=== PATIENT | female | born 1960 | race Caucasian/White ===

== ENCOUNTER 2016-08-16 10:13 | Inpatient (IN) ==
--- NOTE | 2016-08-16 10:23 | Emergency Department Note ---
Disposition Clinical Impression: Upper GI bleed, Epigastric pain, History of ulcer disease, History of gastric bypass Hematemesis Qualifiers: Nausea presence: with nausea Qualified Code(s): K92.0 - Hematemesis Disposition: Admitted As Inpatient Condition: Fair Time of Disposition: 12:33 GI Bleed HPI - General Chief complaint: ED GI Bleed Stated complaint: vomiting blood Time Seen by Provider: 08/16/16 10:22 Source: patient Mode of arrival: ambulatory Limitations: no limitations Nursing Notes Reviewed: Yes Vital Signs Reviewed: Yes - History of Present Illness HPI Narrative: Patient is a 56-year-old female with past medical history of gastric ulcers, previous gastric bypass 8-9 years ago with a revision a few years ago, hypertension, hyperlipidemia, seizures. She takes sucralfate daily for his ulcers. She cannot remember if she takes a daily antacid. She presents today due to vomiting blood and abdominal pain. Patient states that last night, she began having episodes of vomiting and mild epigastric pain. The vomit was dark brown and she thought that it was chocolate since she had been eating chocolate earlier that day. However, she had continued vomiting today, the vomit was bright red blood. She has increased abdominal pain, it is mainly in the epigastric region and is now generalized as well. Denies any fevers, chest pain , shortness of breath, diarrhea, numbness, tingling, weakness. She states that she does not follow with a GI doctor here because she used to live in [place]. - Related Data Home Medications Medication Instructions Recorded Confirmed Multivitamin [Multi-Day Vitamins] 1 tab PO DAILY 04/29/16 04/30/16 Thiamine Mononitrate [Vitamin B-1] 100 mg PO DAILY 04/30/16 04/30/16 Previous Rx's Medication Instructions Recorded Albuterol Sulfate [Ventolin Hfa] 2 puff IH Q4H PRN #1 hfa.aer.ad 05/03/16 Amitriptyline HCl 50 mg PO HS #60 tablet 05/03/16 Amlodipine [Norvasc] 5 mg PO DAILY #30 tablet 05/03/16 Atorvastatin [Lipitor] 40 mg PO DAILY #30 tablet 05/03/16 CloNIDine HCl [Kapvay] 0.1 mg PO BID #60 tab.er.12h 05/03/16 Ferrous Sulfate 325 mg PO DAILY #30 tablet 05/03/16 Fluticasone Propionate Nasal 100 mcg NS DAILY #1 bottle 05/03/16 [Flonase] Fluticasone/Salmeterol [Advair 1 puff IH BID #1 blst.w.dev 05/03/16 250-50 Diskus] Gabapentin [Neurontin] 400 mg PO TID PRN #90 capsule 05/03/16 Loratadine [Allergy Relief] 10 mg PO DAILY #30 tablet 05/03/16 Meloxicam [Mobic] 7.5 mg PO DAILY #30 tablet 05/03/16 Metoprolol XL (24 HR) Succ [Toprol 50 mg PO DAILY #30 tab.er.24h 05/03/16 Xl] Montelukast [Singulair] 10 mg PO DAILY #30 tablet 05/03/16 Nitroglycerin [Nitrostat] 0.4 mg SL AD PRN #20 tab.subl 05/03/16 Perampanel [Fycompa] 4 mg PO DAILY #30 tablet 05/03/16 Ranitidine HCl [Acid Server Cashier] 150 mg PO DAILY #30 tablet 05/03/16 Sucralfate [Carafate] 1 gm PO QIDAC #120 tablet 05/03/16 Mupirocin Calcium [Bactroban] 15 gm TP BID #1 cream..g. 07/16/16 Allergies Allergy/AdvReac Type Severity Reaction Status Date / Time acetaminophen [From Percocet] Allergy Anaphylaxis Verified 07/29/16 11:05 ciprofloxacin [From Cipro] Allergy Anaphylaxis Verified 07/29/16 11:05 hydrocodone [From Vicodin] Allergy Anaphylaxis Verified 07/29/16 11:05 ibuprofen Allergy Anaphylaxis Verified 07/29/16 11:05 meperidine [From Demerol] Allergy Anaphylaxis Verified 07/29/16 11:05 morphine Allergy Anaphylaxis Verified 07/29/16 11:05 Oxycodone [From Percocet] Allergy Anaphylaxis Verified 07/29/16 11:05 Penicillins [PCN] Allergy Anaphylaxis Verified 07/29/16 11:05 tramadol Allergy Anaphylaxis Verified 07/29/16 11:05 Constitutional: Denies: fever ENT ED: Denies: ear pain, throat pain Cardiovascular: Denies: chest pain, palpitations, dyspnea on exertion Respiratory: Denies: cough, dyspnea, wheezes Gastrointestinal: Reports: abdominal pain, nausea, vomiting, hematemesis. Denies: diarrhea Genitourinary: Denies: urgency, dysuria, frequency Musculoskeletal: Denies: back pain Neurological: Denies: headache, weakness, numbness, paresthesias Past Medical History - Past Medical History Attestation: Yes The following information was validated with the patient. Source: patient Medical history: Reports: hyperlipidemia, hypertension, seizures, other Surgical history: Reports: appendectomy, cholecystectomy, hysterectomy, other ( Back surgery, bariatric surgery) Psychiatric history: Reports: anxiety, depression, PTSD CARBONATING STONE CLEANER history: Reports: no CARBONATING STONE CLEANER history - Social History Smoking Status: Never smoker Smokeless Tobacco Status: No Alcohol use: Reports: none Drug use: Reports: none Physical Exam - General Limitations: no limitations General appearance: alert - Head Head exam: atraumatic, normocephalic, normal inspection - Eye Eye exam: Present: normal appearance, PERRL, EOMI - ENT ENT exam: normal exam, normal oropharynx, mucous membranes moist - Neck Neck exam: Present: normal inspection, full ROM, trachea midline - Chest Chest inspection: Present: normal inspection, symmetric chest wall rise - Respiratory Respiratory exam: Present: normal lung sounds bilaterally. Absent: respiratory distress - Cardiovascular Cardiovascular exam: Present: normal rhythm, tachycardia, normal heart sounds - Abdominal Exam Abdominal exam: Present: soft, tenderness (Moderate generalized tenderness with worst pain in epigastric region), guarding (Voluntary guarding with palpation of the epigastric region). Absent: distention, rebound, rigidity - Extremities Exam Extremities exam: Present: normal inspection, full ROM. Absent: pedal edema - Neurological Exam Neurological exam: Present: alert, oriented X3 - Psychiatric Psychiatric exam: Present: normal affect, normal mood - Skin Skin exam: Present: warm, dry, intact, normal color Course Course Narrative: Patient was tachycardic in the 110s on presentation, blood pressure stable. Patient was visibly uncomfortable, holding her abdomen, did have bloody gastric contents in emesis bag. She had moderate generalized abdominal tenderness, worse in the epigastric region with voluntary guarding. The rest of physical exam was benign. No pale conjunctivae on exam. Current concern for perforated ulcer, upper GI bleed. Hemoglobin and hematocrit ordered, BMP, type and screen , fluids, Zofran and fentanyl for pain and nausea control. Also ordered CT the abdomen and pelvis with oral contrast for further assessment. 12:23 hemoglobin 11.1, patient's previous hemoglobin of 11.3. Blood pressure remained stable. INR is 1.0. Potassium mildly low at 3.3. CT scan showed incidental finding of dilated bile duct at 1.3 cm, otherwise no acute process. BP still stable, IV fluids running. I talked with Dr. Scott , endoscopy, who agreed to perform an upper GI endoscopy if the patient was admitted to the hospitalist service. Hospitalist has been paged. Patient was given additional Zofran and Fentanly for pain and nausea control. Dr. Quinn accepts for admission. Vital Signs Temperature 98.1 F 08/16/16 10:18 Pulse Rate 110 08/16/16 10:18 Respiratory Rate 16 08/16/16 10:18 Blood Pressure 120/86 08/16/16 10:18 O2 Sat by Pulse Oximetry 98 08/16/16 10:18 Temperature 97.9 F 08/16/16 13:57 Pulse Rate 78 08/16/16 13:57 Respiratory Rate 15 08/16/16 13:57 Blood Pressure 118/71 08/16/16 13:57 O2 Sat by Pulse Oximetry 98 08/16/16 13:57 Oxygen Delivery Oxygen Delivery Room Air GI Bleed - MDM Narrative Medical decision making narrative: hemoglobin 11.1, patient's previous hemoglobin of 11.3. Blood pressure remained stable. INR is 1.0. Potassium mildly low at 3.3. CT scan showed incidental finding of dilated bile duct at 1.3 cm, otherwise no acute process. BP still stable, IV fluids running. I talked with Dr. Scott , endoscopy, who agreed to perform an upper GI endoscopy if the patient was admitted to the hospitalist service. Hospitalist has been paged. Patient was given additional Zofran and Fentanly for pain and nausea control. Dr. Quinn accepts for admission. - Medical Records Medical records reviewed: Yes I reviewed the patient's medical records. - Lab Data Lab results reviewed: Yes I reviewed the patient's lab results. Result diagrams: 08/16/16 10:50 08/16/16 10:50 Lab Results 08/16/16 08/16/16 08/16/16 Range/Units 10:50 10:50 10:50 Hgb (11.5-15.4) g/dL Hct (35.3-44.9) % PT 11.3 (9.4-12.1) Seconds INR 1.0 Sodium 143 (136-145) mEq/L Potassium 3.3 L (3.5-4.5) mEq/L Chloride 108 (98-109) mEq/L Carbon Dioxide 24 (19-29) mEq/L BUN 14 (7-20) mg/dL Creatinine 0.73 (0.57-1.11) mg/dL Est GFR ( Amer) > 60 (> 60) Est GFR (Non-Af Amer) > 60 (> 60) BUN/Creatinine Ratio 19 (6-26) Glucose 103 H (70-99) mg/dL Calculated Osmolality 297 (280-300) Calcium 9.3 (8.6-10.8) mg/dL Blood Type A POSITIVE Antibody Screen NEGATIVE 08/16/16 Range/Units 10:50 Hgb 11.1 L (11.5-15.4) g/dL Hct 33.9 L (35.3-44.9) % PT (9.4-12.1) Seconds INR Sodium (136-145) mEq/L Potassium (3.5-4.5) mEq/L Chloride (98-109) mEq/L Carbon Dioxide (19-29) mEq/L BUN (7-20) mg/dL Creatinine (0.57-1.11) mg/dL Est GFR ( Amer) (> 60) Est GFR (Non-Af Amer) (> 60) BUN/Creatinine Ratio (6-26) Glucose (70-99) mg/dL Calculated Osmolality (280-300) Calcium (8.6-10.8) mg/dL Blood Type Antibody Screen - Radiology Data Radiology results reviewed: Yes I reviewed the patient's radiology results. Abdomen/Pelvis CT 08/16/16 10:34 IMPRESSION: 1. Dilated common bile duct measuring 1.3 cm. This can be seen in a postcholecystectomy state. However, I would recommend correlation with liver function studies to exclude an obstructing process. 2. Otherwise, no acute intra-abdominal or pelvic abnormality. 3. No urinary tract calcifications seen. D/ / Buddy Mayes MD / Buddy Mayes MD Interpreting Provider: Buddy Mayes MD - EKG Data EKG attestation: Yes I reviewed and interpreted this EKG. EKG results narrative: 08/16/2016. Normal sinus rhythm. Normal axis. Rate 95. QTc 426. QRS 100. No acute ST elevation or depression. No acute changes from previous EKG on S.[email or web address].Robel. - SIsmael Situation: Demographics, MOA Background: Presenting Complaint, Relevant PMH, Meds, & Allergies Assessment: Vital Signs, Course and respsone to treatment, Exam Concerns, Patient/Family Expectation, Pertinant Lab Results, Outstanding Labs Recommendation: Barrier(s) to disposition, Recommendation based on pending studies, treatments, or consults SIsmael Report Given to: Dr. Kai Cunningham Repor Time: 12:33 Attestation Statement - Attestation Attestation: I examined this patient and my medical decision-making was reviewed with the Resident Physician. I agree with the documented findings, disposition and treatment plan as described except to the extent set forth below. Significant abdominal tenderness and voluntary guarding, but no rigidity. NAD on CT, has hematesis, stable VS and stable Hgb. Admit for eval of UGIB and abominal pain.
[2016-08-16] MEDS ORDERED: Ondansetron 4 MG/2 ML VIAL IVP ONE ×2 (10:27→12:13)
[2016-08-16] MEDS ORDERED: *HR* FentaNYL (PF) 100 MCG/2 ML VIAL IVP ONE ×2 (10:35→12:12)
[2016-08-16] MEDS ORDERED: 0.9 % Sodium Chloride 1,000 ML IVC ONE (10:44)
[2016-08-16 10:57] LABS: Hematocrit 33.9 % (35.3-44.9); Hemoglobin 11.1 g/dL (11.5-15.4)
[2016-08-16 11:08] LABS: BUN/Creatinine Ratio 19 (6-26); Blood Urea Nitrogen 14 mg/dL (7-20); Calcium 9.3 mg/dL (8.6-10.8); Carbon Dioxide 24 mEq/L (19-29); Chloride 108 mEq/L (98-109); Glucose 103 mg/dL (70-99); Osmolality,Calculated 297 (280-300); Potassium 3.3 mEq/L (3.5-4.5); Sodium 143 mEq/L (136-145); eGFR For African Americans > 60 (> 60); eGFR For Non-African Americans > 60 (> 60)
[2016-08-16 11:12] LABS: Prothrombin Time 11.3 Seconds (9.4-12.1)
[2016-08-16] MEDS ORDERED: Naloxone 0.4 MG/ML INJ IVP PRN (13:36)
[2016-08-16] MEDS ORDERED: Ondansetron 4 MG/2 ML VIAL IVP PRN (13:41)
[2016-08-16] MEDS ORDERED: Pantoprazole 80 MG in 0.9 % Sodium Chloride 50 ML IVPB ONE (13:55)
--- NOTE | 2016-08-16 14:16 | Internal Med History&Physical ---
Date of Encounter: 08/16/16 Time of Encounter: 13:30 Assessment and Plan (1) Upper GI bleed Current visit: Yes Status: Acute 1 patient has a history of gastric ulcers. She presented with hematemesis and epigastric pain. Hemoglobin is stable at 11.1 Patient states that she has not used any ibuprofen or NSAIDs We will hold Mobic for now , we will monitor H&H every 6 hours and transfuse as needed 2 ER physician spoke with Dr. Coker who will perform endoscopy. Make patient nothing by mouth 3 we will initiate Protonix drip (2) DVT prophylaxis Current visit: Yes Status: Acute 1 due to GI bleed will place patient on SCDs (3) Essential hypertension Current visit: No Status: Chronic 1 presently controlled we will continue with home antihypertensives-goal is to maintain systolic less than 140 (4) Seizure disorder Current visit: No Status: Chronic 1 patient has history of seizure activity. Last seizure was in June. She has appointment to see Dr. Samson on the of this month. Continue with antiepileptics-placed on seizure precautions have patient follow-up as outpatient with neurology and consult neurology as needed (5) Hypokalemia Current visit: No Status: Acute Patient's potassium was 3.3. We will give oral potassium 20 mEq recheck in the a.m. Internal Medicine - H&P: HPI Chief complaint: Vomiting blood Admitted From: Emergency Dept Plans for Post Hospital Care: Home History of present illness: Ms. Palacios is a 56 year old female with past medical history of gastric ulcers previous gastric bypass 8-9 years ago with revision a few years ago hypertension hyperlipidemia seizures brain aneurysm. According to the patient she woke up in the middle the night with mild epigastric pain and vomited since it was dark brown she attributed to the fact that she had eaten chocolate earlier in the day. However as the night progress her pain increased she described the pain as sharp and burning more intense prior to vomiting and eases after she vomits. This a.m. the patient continued to have increased abdominal pain in her epigastric area and had 2 episodes of emesis bright red blood. She denied any fevers chills chest pain shortness of breath diarrhea numbness or weakness. She also denies any melena or hematochezia. She presented to the ER for evaluation. According to ER notes upon presentation patient was tachycardic with heart rate of 100 her blood pressure was stable she appeared to be visibly uncomfortable and had abdominal tenderness and epigastric pain she was medicated for her pain. Check of her H&H did reveal hemoglobin 11.1 which was unchanged from previous hemoglobin 11.3 in July of this year. did reveal a hypokalemia with potassium of 3.3. CT of abdomen revealed no acute intra-abdominal or pelvic abnormality however did show an incidental dilated common bile duct measuring 1.3 cm. The patient was given IV fluids for tachycardia did improve. ER physician did speak with Dr. Coker who recommended patient be admitted per hospitalist services and that he would see the patient for endoscopy. Patient has been admitted for further workup and evaluation. At present time patient does not appear to be in any discomfort and only has pain to abdomen upon palpation of epigastric area with guarding. No emesis at this time. She appears to be hemodynamically stable. The patient states that she is on Carafate daily and that she has not seen a GI doctor she has recently moved here from [place]. She does have a PCP however has not established GI. She states prior to this incident she has been at her normal state of health. I reviewed this case with Dr Quinn who agrees with plan Past Med Surg Social Fam HX - Past Medical History Medical history: hyperlipidemia, hypertension, seizures, other Psychiatric history: anxiety, depression, PTSD - Past Surgical History Surgical History: appendectomy, cholecystectomy, hysterectomy, other - Social History Smoking Status: Never smoker Smokeless Tobacco Status: No Alcohol use: none Drug use: none - Family History Mother Age: 58 Living Status: Cause of : Emphasema/Stroke Hx Family Cardiac Disorders: Yes Hx Family Respiratory Disorders: No Hx Family Cancer: No Hx Family GI Disorders: No Hx Family Endocrine Disorder: No Hx Family Neuromuscular Disorders: No Hx Family Neurologic Disorders: Yes (mom and dad had stroke) Hx Family HEENT Disorders: No Hx Family Autoimmune Disorders: No Internal Medicine - H&P: Meds Multivitamin [Multi-Day Vitamins] 1 tab PO DAILY 04/29/16 [History] Albuterol Sulfate [Ventolin Hfa] 2 puff IH Q4H PRN #1 hfa.aer.ad 05/03/16 [Rx] Amlodipine [Norvasc] 5 mg PO DAILY #30 tablet 05/03/16 [Rx] Atorvastatin [Lipitor] 40 mg PO DAILY #30 tablet 05/03/16 [Rx] CloNIDine HCl [Kapvay] 0.1 mg PO BID #60 tab.er.12h 05/03/16 [Rx] Ferrous Sulfate 325 mg PO DAILY #30 tablet 05/03/16 [Rx] Fluticasone Propionate Nasal [Flonase] 100 mcg NS DAILY #1 bottle 05/03/16 [Rx] Fluticasone/Salmeterol [Advair 250-50 Diskus] 1 puff IH BID #1 blst.w.dev [Rx] Gabapentin [Neurontin] 400 mg PO TID PRN #90 capsule 05/03/16 [Rx] Loratadine [Allergy Relief] 10 mg PO DAILY #30 tablet 05/03/16 [Rx] Meloxicam [Mobic] 7.5 mg PO DAILY #30 tablet 05/03/16 [Rx] Metoprolol XL (24 HR) Succ [Toprol Xl] 50 mg PO DAILY #30 tab.er.24h 05/03/16 [ Rx] Montelukast [Singulair] 10 mg PO DAILY #30 tablet 05/03/16 [Rx] Nitroglycerin [Nitrostat] 0.4 mg SL AD PRN #20 tab.subl 05/03/16 [Rx] Perampanel [Fycompa] 4 mg PO DAILY #30 tablet 05/03/16 [Rx] Sucralfate [Carafate] 1 gm PO QIDAC #120 tablet 05/03/16 [Rx] Amitriptyline HCl 200 mg PO HS 08/16/16 [History] Cyanocobalamin (Vitamin B-12) [Vitamin B12] 2,500 mcg PO DAILY 08/16/16 [History ] Vitamin B Complex [B Complex] 1 tab PO DAILY 08/16/16 [History] Allergies acetaminophen [From Percocet] Allergy (Verified 07/29/16 11:05) Anaphylaxis ciprofloxacin [From Cipro] Allergy (Verified 07/29/16 11:05) Anaphylaxis hydrocodone [From Vicodin] Allergy (Verified 07/29/16 11:05) Anaphylaxis ibuprofen Allergy (Verified 07/29/16 11:05) Anaphylaxis meperidine [From Demerol] Allergy (Verified 07/29/16 11:05) Anaphylaxis morphine Allergy (Verified 07/29/16 11:05) Anaphylaxis Oxycodone [From Percocet] Allergy (Verified 07/29/16 11:05) Anaphylaxis Penicillins [PCN] Allergy (Verified 07/29/16 11:05) Anaphylaxis tramadol Allergy (Verified 07/29/16 11:05) Anaphylaxis All Systems PM: A 10-system review of systems was performed and is negative for pertinent findings except as documented above in the HPI. - Constitutional Constitutional: falls, weakness - Cardiovascular Cardiovascular ROS IM: no chest pain, no diaphoresis, no dyspnea, no lightheadedness, no palpitations, no syncope - Respiratory Respiratory: no cough, no dyspnea, no wheezing, no excessive phlegm production - Gastrointestinal Gastrointestinal: abdominal pain, hematemesis - Genitourinary Genitourinary: no change in urinary stream, no dysuria, no flank pain, no hematuria - Musculoskeletal Musculoskeletal ROS IM: joint swelling, limited range of motion Additional comments: Limited range of motion and swelling to knees bilaterally - Neurological Neurological ROS: frequent falls Additional comments: Last seizures in June 2016 - Constitutional Vitals: Temp Pulse Resp BP Pulse Ox 97.9 F 78 15 118/71 98 08/16/16 13:57 08/16/16 13:57 08/16/16 13:57 08/16/16 13:57 08/16/16 13:57 General appearance: Present: A&O X 3, answers questions appropriately - Head Head exam: Present: atraumatic, normocephalic - Eye Eye exam: Present: PERRL, conjuntiva pink, sclera anicteric Pupils: Present: PERRL - Respiratory Respiratory exam: Present: CTAB. Absent: accessory muscle use, rales, rhonchi, wheezes - Cardiovascular Cardiovascular exam: Present: RRR, +S1, +S2. Absent: diastolic murmur, gallop, rubs, systolic murmur - GI/Abdominal GI/Abdominal exam: Present: guarding, normal bowel sounds, soft, tenderness, no peritoneal signs. Absent: distended Additional comments: Tenderness to epigastric area with guarding - Extremities Exam Extremities exam: Present: warm, radial pulses palpable and symetrical. Absent : calf tenderness, cyanotic, pedal edema - Neurological Exam Neurological exam: Present: CN II-XII intact, oriented X3, no focal deficits. Absent: pronater drift, facial droop, speech deficit - Skin Skin exam: Present: dry, intact Internal Med - H&P Results - Labs CBC & Chem 7: 08/16/16 17:19 08/16/16 10:50 - EKG Data EKG shows normal: sinus rhythm - Diagnostic Studies CT scan - abdomen Additional comments: Pertinent radiology read dilated common bile duct measuring 1.3 cm. This can be seen in a post cholecystectomy state. However at recommend correlation with liver function studies to exclude an obstructing process. Otherwise no acute intra-abdominal or pelvic abnormality. No urinary tract calcifications seen.
[2016-08-16 14:22] LABS: Alanine Aminotransferase 15 Units/L (0-55); Albumin 3.7 g/dL (3.5-5.0); Albumin/Globulin Ratio 1.2 (1.1-2.2); Alkaline Phosphatase 83 Units/L (38-126); Aspartate Amino Transferase 18 Units/L (5-34); Bilirubin,Direct 0.2 mg/dL (0.0-0.5); Bilirubin,Indirect 0.2 mg/dL (0.0-1.2); Bilirubin,Total 0.4 mg/dL (0.2-1.2); Globulin 3.1 g/dL (2.4-3.5); Total Protein 6.8 g/dL (6.0-8.3)
[2016-08-16] MEDS: 0.9 % Sodium Chloride 1,000 ML IVC SCH (14:51)
[2016-08-16] MEDS: Pantoprazole 40 MG in 0.9 % Sodium Chloride Mini Bag 100 ML IVC SCH ×2 (15:08→18:53)
[2016-08-16 17:25] LABS: Hematocrit 30.9 % (35.3-44.9)
--- NOTE | 2016-08-16 17:36 | General Surgery Consult Note ---
Date of Encounter: 08/16/16 Time of Encounter: 17:30 Assessment and Plan (1) Hematemesis Current Visit: Yes Status: Acute NPO PPI threrapy Carafate QID Monitor Hgb/Hct Discussed the risks, benefits, alternatives and expected outcomes with the patient and we will plan for an EGD 08/17/[address] Scott Qualifiers: Nausea presence: with nausea Qualified Code(s): K92.0 - Hematemesis; R11.0 - Nausea (2) Epigastric pain Current Visit: Yes Status: Acute NPO PPI threrapy Carafate QID Monitor Hgb/Hct Discussed the risks, benefits, alternatives and expected outcomes with the patient and we will plan for an EGD 08/17/[address] Scott (3) History of gastric bypass Current Visit: Yes Status: Acute (4) History of ulcer disease Current Visit: Yes Status: Acute History of Present Illness Consult date: 08/16/16 Requesting physician: Manuel Sanchez History of present illness: 56 year old female presented to the ED with complaints of vomiting up blood and epigastric abdominal pain for the past 24 hours. She states that she initially vomited up old gastric content but that it changed to blood this morning. She reports multiple episodes. Her abdominal pain is constant and denies any radiating factors. Denies any melena. She has not had a bowel movement in 3 days. She typically has a bowel movement every 3 days. Denies any shortness of breath of chest pains. Denies any syncopal episodes. Denies any unexplained weight loss. We have been asked to see and evaluate her for endoscopic evaluation. Her last EGD was complete in January 2016. Past Med Surg Social Fam HX - Past Medical History Source: old records reviewed Medical history: hyperlipidemia, hypertension, seizures, other Psychiatric history: anxiety, depression, PTSD - Past Surgical History Surgical History: appendectomy, cholecystectomy, hysterectomy, other (EGD X 8 ( last 01/2016)), bariatric surgery (9 years ago per patient) - Social History Smoking Status: Never smoker Smokeless Tobacco Status: No Alcohol use: none Drug use: none - Family History Mother Age: 58 Living Status: Cause of : Emphasema/Stroke Hx Family Cardiac Disorders: Yes Hx Family Respiratory Disorders: No Hx Family Cancer: No Hx Family GI Disorders: No Hx Family Endocrine Disorder: No Hx Family Neuromuscular Disorders: No Hx Family Neurologic Disorders: Yes (mom and dad had stroke) Hx Family HEENT Disorders: No Hx Family Autoimmune Disorders: No Medications and Allergies Multivitamin [Multi-Day Vitamins] 1 tab PO DAILY 04/29/16 [History] Albuterol Sulfate [Ventolin Hfa] 2 puff IH Q4H PRN #1 hfa.aer.ad 05/03/16 [Rx] Amlodipine [Norvasc] 5 mg PO DAILY #30 tablet 05/03/16 [Rx] Atorvastatin [Lipitor] 40 mg PO DAILY #30 tablet 05/03/16 [Rx] CloNIDine HCl [Kapvay] 0.1 mg PO BID #60 tab.er.12h 05/03/16 [Rx] Ferrous Sulfate 325 mg PO DAILY #30 tablet 05/03/16 [Rx] Fluticasone Propionate Nasal [Flonase] 100 mcg NS DAILY #1 bottle 05/03/16 [Rx] Fluticasone/Salmeterol [Advair 250-50 Diskus] 1 puff IH BID #1 blst.w.dev [Rx] Gabapentin [Neurontin] 400 mg PO TID PRN #90 capsule 05/03/16 [Rx] Loratadine [Allergy Relief] 10 mg PO DAILY #30 tablet 05/03/16 [Rx] Meloxicam [Mobic] 7.5 mg PO DAILY #30 tablet 05/03/16 [Rx] Metoprolol XL (24 HR) Succ [Toprol Xl] 50 mg PO DAILY #30 tab.er.24h 05/03/16 [ Rx] Montelukast [Singulair] 10 mg PO DAILY #30 tablet 05/03/16 [Rx] Nitroglycerin [Nitrostat] 0.4 mg SL AD PRN #20 tab.subl 05/03/16 [Rx] Perampanel [Fycompa] 4 mg PO DAILY #30 tablet 05/03/16 [Rx] Sucralfate [Carafate] 1 gm PO QIDAC #120 tablet 05/03/16 [Rx] Amitriptyline HCl 200 mg PO HS 08/16/16 [History] Cyanocobalamin (Vitamin B-12) [Vitamin B12] 2,500 mcg PO DAILY 08/16/16 [History ] Vitamin B Complex [B Complex] 1 tab PO DAILY 08/16/16 [History] Allergies acetaminophen [From Percocet] Allergy (Verified 07/29/16 11:05) Anaphylaxis ciprofloxacin [From Cipro] Allergy (Verified 07/29/16 11:05) Anaphylaxis hydrocodone [From Vicodin] Allergy (Verified 07/29/16 11:05) Anaphylaxis ibuprofen Allergy (Verified 07/29/16 11:05) Anaphylaxis meperidine [From Demerol] Allergy (Verified 07/29/16 11:05) Anaphylaxis morphine Allergy (Verified 07/29/16 11:05) Anaphylaxis Oxycodone [From Percocet] Allergy (Verified 07/29/16 11:05) Anaphylaxis Penicillins [PCN] Allergy (Verified 07/29/16 11:05) Anaphylaxis tramadol Allergy (Verified 07/29/16 11:05) Anaphylaxis Review of Systems All systems PM: reviewed and no additional remarkable complaints except as stated (in the HPI) All systems PM: A 10-system review of systems was performed and is negative for pertinent findings except as documented above in the HPI. General Surgery Exam Initial Vital Signs Temp Pulse Resp BP Pulse Ox 98.1 F 110 16 120/86 98 08/16/16 10:18 08/16/16 10:18 08/16/16 10:18 08/16/16 10:18 08/16/16 10:18 Exam Initial Vital Signs Temp Pulse Resp BP Pulse Ox 98.1 F 110 16 120/86 98 08/16/16 10:18 08/16/16 10:18 08/16/16 10:18 08/16/16 10:18 08/16/16 10:18 Results - Labs 08/16/16 17:19 08/16/16 10:50 Abnormal lab results Hgb 10.0 g/dL (11.5-15.4) L 08/16/16 17:19 Hct 30.9 % (35.3-44.9) L 08/16/16 17:19 Potassium 3.3 mEq/L (3.5-4.5) L 08/16/16 10:50 Glucose 103 mg/dL (70-99) H 08/16/16 10:50 All other labs normal. - Imaging CT scan - abdomen: report reviewed CT scan - pelvis: report reviewed Additional studies: Abdomen/Pelvis CT 08/16/16 10:34 IMPRESSION: 1. Dilated common bile duct measuring 1.3 cm. This can be seen in a postcholecystectomy state. However, I would recommend correlation with liver function studies to exclude an obstructing process. 2. Otherwise, no acute intra-abdominal or pelvic abnormality. 3. No urinary tract calcifications seen. D/ / Buddy Mayes MD / Buddy Mayes MD Interpreting Provider: Buddy Mayes MD Consult Discharge Plan - Plan Referrals: Nelda Zimmerman MD [Primary Care Provider] - - Attending Attestation I examined this patient and my medical decision-making was reviewed with the MOLECULAR GENETIC PATHOLOGIST/PA/Advanced Practice Nurse/Resident Physician. I agree with the documented findings, disposition and treatment plan as described except to the extent set forth below.
[2016-08-16] MEDS ORDERED: Nitroglycerin 0.4 MG TAB.SUBL SL PRN (18:54)
[2016-08-16] MEDS: Sucralfate 1 GM TABLET PO SCH (21:12)
[2016-08-16] MEDS ORDERED: Sucralfate 1 GM TABLET PO SCH (22:00)
[2016-08-16] MEDS: Budesonide/Formoterol 160/4.5 MDI IH SCH (22:40)
[2016-08-16 22:55] LABS: Hematocrit 30.8 % (35.3-44.9); Hemoglobin 9.8 g/dL (11.5-15.4)
[2016-08-17] MEDS: Pantoprazole 40 MG in 0.9 % Sodium Chloride Mini Bag 100 ML IVC SCH ×4 (00:04→19:08)
[2016-08-17] MEDS: 0.9 % Sodium Chloride 1,000 ML IVC SCH (04:18)
[2016-08-17 06:03] LABS: BUN/Creatinine Ratio 13 (6-26); Blood Urea Nitrogen 8 mg/dL (7-20); Calcium 8.2 mg/dL (8.6-10.8); Carbon Dioxide 23 mEq/L (19-29); Chloride 114 mEq/L (98-109); Glucose 80 mg/dL (70-99); Osmolality,Calculated 297 (280-300); Potassium 3.4 mEq/L (3.5-4.5); Sodium 145 mEq/L (136-145); eGFR For African Americans > 60 (> 60); eGFR For Non-African Americans > 60 (> 60)
[2016-08-17 06:23] LABS: Basophils % 0.7 %; Eosinophils # 0.2 K/mcL (0.0-0.6); Eosinophils % 5.4 %; Hematocrit 31.2 % (35.3-44.9); Hemoglobin 10.1 g/dL (11.5-15.4); Immature Granulocytes % 0.2 % (0-4); Lymphocytes # 1.5 K/mcL (0.6-4.6); Lymphocytes % 35.8 %; Mean Corpuscular HGB Conc 32.4 g/dL (31.6-35.5); Mean Corpuscular Volume 92.6 fL (83.0-100.0); Mean Platelet Volume 8.6 fL (9.4-12.4); Monocytes # 0.4 K/mcL (0.0-1.3); Monocytes % 8.7 %; Neutrophils # 2.1 K/mcL (1.6-8.9); Platelet Count 231 K/mcL (140-400); Red Blood Count 3.37 M/mcL (3.82-4.97); Red Cell Distribution Width 13.5 % (11.5-14.5); Segmented Neutrophils % 49.2 %
[2016-08-17] MEDS: Sucralfate 1 GM TABLET PO SCH ×4 (06:25→21:10)
[2016-08-17] MEDS ORDERED: *HR* Midazolam HCl 5 MG/5 ML VIAL IVP ONE (08:47)
[2016-08-17] MEDS ORDERED: *HR* FentaNYL (PF) 100 MCG/2 ML VIAL ONE (08:48)
[2016-08-17] MEDS ORDERED: Simethicone 40 MG/0.6 ML MLS IR ONE (09:24)
[2016-08-17] MEDS ORDERED: *HR* Midazolam HCl 5 MG/5 ML VIAL IVP PRN (09:24)
[2016-08-17] MEDS ORDERED: Tetracaine/Benzocaine/Butamben 200MG/SPRAY (100SPY/BOT) MM ONE (09:24)
[2016-08-17] MEDS ORDERED: *HR* FentaNYL (PF) 100 MCG/2 ML VIAL IVP PRN (09:24)
--- NOTE | 2016-08-17 09:26 | Pre-Sedation Evaluation ---
Pre-sedation evaluation - Pre-sedation checklist Date of procedure: 08/17/16 Procedure: egd Recent Vitals: Last Vital Signs Temp 98.5 F 08/17/16 07:00 Pulse 93 08/17/16 08:50 Resp 16 08/17/16 08:50 BP 141/81 08/17/16 08:50 Pulse Ox 96 08/17/16 08:50 H&P (including ROS) documented in medical record: Yes Previous reaction to sedatives/anesthetics: No Dietary Status: NPO after Midnight Dentition: poor dentition Possible difficult airway: No ASA Classification *see protocol: CLASS III-Severe systemic disease
[2016-08-17] MEDS: Budesonide/Formoterol 160/4.5 MDI IH SCH ×2 (09:32→20:14)
[2016-08-17] MEDS: Metoprolol XL (24 HR) Succ 50 MG TAB.ER.24H PO SCH (11:25)
[2016-08-17] MEDS: Loratadine 10 MG TABLET PO SCH (11:25)
[2016-08-17] MEDS: Vitamin B Complex/Vit C/Vit E 1 EACH TABLET PO SCH (11:25)
[2016-08-17] MEDS: Multivit/Ca/Min/Fe/FA 1 TAB TABLET PO SCH (11:26)
[2016-08-17] MEDS: Fluticasone Propionate Nasal 50 MCG/SPRAY BOTTLE NS SCH (11:26)
[2016-08-17] MEDS: PERAMPANEL 4 MG PO SCH (11:27)
[2016-08-17] MEDS: Cyanocobalamin (B-12) 1,000 MCG TABLET PO SCH (11:32)
--- NOTE | 2016-08-17 14:24 | Event Note ---
Date of Encounter: 08/17/16 Time of Encounter: 10:[address] Scott on 08/17/16 for hematemesis. EGD showed 1) LA grade B esophagitis. 2) Gastric bypass with a normal sied ponch and intact staple line. 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 Dilated. 3) No specimens collected. Recommended return to Bariatric clinic. Advanced to clear liquids. Surgery will sign off at this time, thank you for involiving us in this patient' s care. Please feel free to contact us with any further questions.
[2016-08-17] MEDS ORDERED: Gabapentin 400 MG CAPSULE PO PRN (15:54)
--- NOTE | 2016-08-17 16:05 | Internal Med Progress Note ---
Date of Encounter: 08/17/16 Time of Encounter: 12:45 - Assessment and plan (1) Anemia Current Visit: Yes Status: Acute Assessment and plan: NO active bleeding noted since hospitalization H&H low but acceptable continue to monitor Qualifiers: Anemia type: unspecified type Qualified Code(s): D64.9 - Anemia, unspecified (2) Upper GI bleed Current Visit: Yes Status: Acute Assessment and plan: s/p EGD EGD showed stenosis of Gastrojejunal anastomosis requiring dilatation LA grade B esophagitis no active bleeding noted Surgery eval with Dr. Sonia philip Will advance to clear liquid diet if remains stable overnight, d/c in am (3) Hypokalemia Current Visit: No Status: Acute Assessment and plan: K supplemented continue to monitor electrolytes and replace as needed (4) Essential hypertension Current Visit: No Status: Chronic Assessment and plan: BP within acceptable range continue home medications (5) DVT prophylaxis Current Visit: Yes Status: Acute Assessment and plan: IPCD - Subjective Interval history: Patient seen and examined. S/p EGD. Reports of feeling better compared to previous day. No abd pain, or active bleeding reported. - Constitutional Vitals: Temp Pulse Resp BP Pulse Ox 98.6 F 92 18 145/81 97 08/17/16 15:00 08/17/16 15:00 08/17/16 15:00 08/17/16 15:00 08/17/16 15:00 General appearance: Present: A&O X 3, no acute distress, obese, answers questions appropriately - Head Head exam: Present: atraumatic, normocephalic - Eye Eye exam: Present: PERRL, conjuntiva pink, sclera anicteric - Respiratory Respiratory exam: Present: CTAB. Absent: accessory muscle use, rales, rhonchi, wheezes - Cardiovascular Cardiovascular exam: Present: RRR, +S1, +S2. Absent: diastolic murmur, gallop, rubs, systolic murmur - GI/Abdominal GI/Abdominal exam: Present: normal bowel sounds, soft. Absent: tenderness - Extremities Exam Extremities exam: Present: warm, radial pulses palpable and symetrical. Absent : calf tenderness - Neurological Exam Neurological exam: Present: alert, oriented X3 - Psychiatric Psychiatric exam: Present: normal affect, normal mood Internal Medicine: Result - Labs CBC & Chem 7: 08/17/16 05:07 08/17/16 05:07 Labs: Short CBC 08/16/16 08/17/16 Range/Units 22:39 05:07 WBC 4.3 (4.3-11.1) K/mcL Hgb 9.8 L 10.1 L (11.5-15.4) g/dL Hct 30.8 L 31.2 L (35.3-44.9) % Plt Count 231 (140-400) K/mcL Neutrophils # 2.1 (1.6-8.9) K/mcL BMP 08/17/16 05:07 Sodium 145 Potassium 3.4 L Chloride 114 H Carbon Dioxide 23 BUN 8 Creatinine 0.63 Glucose 80 Calcium 8.2 L - ABG Interpretation ABG results: PT/INR, D-dimer PT 11.3 Seconds (9.4-12.1) 08/16/16 10:50 - VTE Documentation of Mechanical Device: Intermittent pneumatic compression device Consult Discharge Plan - Plan Referrals: Nelda Zimmerman MD [Primary Care Provider] -
[2016-08-17] MEDS: Gabapentin 400 MG CAPSULE PO SCH ×2 (17:07→21:10)
[2016-08-17] MEDS: cloNIDine HCl 0.1 MG TABLET PO SCH (21:09)
[2016-08-18] MEDS: Pantoprazole 40 MG in 0.9 % Sodium Chloride Mini Bag 100 ML IVC SCH ×4 (02:41→09:51)
[2016-08-18 06:39] VITALS: BP 149/94
[2016-08-18] MEDS: Sucralfate 1 GM TABLET PO SCH ×2 (07:27→11:37)
[2016-08-18 08:06] LABS: Basophils % 0.5 %; Eosinophils # 0.2 K/mcL (0.0-0.6); Eosinophils % 3.7 %; Hematocrit 33.5 % (35.3-44.9); Hemoglobin 10.6 g/dL (11.5-15.4); Immature Granulocytes % 0.4 % (0-4); Lymphocytes # 1.4 K/mcL (0.6-4.6); Lymphocytes % 24.9 %; Mean Corpuscular HGB Conc 31.6 g/dL (31.6-35.5); Mean Corpuscular Hemoglobin 29.4 pg (28.0-33.3); Mean Corpuscular Volume 92.8 fL (83.0-100.0); Mean Platelet Volume 8.3 fL (9.4-12.4); Monocytes # 0.5 K/mcL (0.0-1.3); Monocytes % 8.6 %; Neutrophils # 3.5 K/mcL (1.6-8.9); Platelet Count 242 K/mcL (140-400); Red Blood Count 3.61 M/mcL (3.82-4.97); Red Cell Distribution Width 13.2 % (11.5-14.5); Segmented Neutrophils % 61.9 %
[2016-08-18 08:07] LABS: BUN/Creatinine Ratio 10 (6-26); Blood Urea Nitrogen 6 mg/dL (7-20); Calcium 8.7 mg/dL (8.6-10.8); Carbon Dioxide 24 mEq/L (19-29); Chloride 110 mEq/L (98-109); Glucose 81 mg/dL (70-99); Magnesium 1.5 mg/dL (1.6-2.6); Osmolality,Calculated 293 (280-300); Phosphorous 3.3 mg/dL (2.3-4.7); Potassium 3.5 mEq/L (3.5-4.5); Sodium 143 mEq/L (136-145); eGFR For African Americans > 60 (> 60); eGFR For Non-African Americans > 60 (> 60)
[2016-08-18] MEDS ORDERED: Magnesium Oxide 400 MG TABLET PO SCH (09:00)
[2016-08-18] MEDS: Budesonide/Formoterol 160/4.5 MDI IH SCH (09:38)
[2016-08-18] MEDS: Gabapentin 400 MG CAPSULE PO SCH (09:47)
[2016-08-18] MEDS: Cyanocobalamin (B-12) 1,000 MCG TABLET PO SCH (09:47)
[2016-08-18] MEDS: Loratadine 10 MG TABLET PO SCH (09:48)
[2016-08-18] MEDS: Multivit/Ca/Min/Fe/FA 1 TAB TABLET PO SCH (09:48)
[2016-08-18] MEDS: Vitamin B Complex/Vit C/Vit E 1 EACH TABLET PO SCH (09:48)
[2016-08-18] MEDS: Metoprolol XL (24 HR) Succ 50 MG TAB.ER.24H PO SCH (09:48)
[2016-08-18] MEDS: cloNIDine HCl 0.1 MG TABLET PO SCH (09:49)
[2016-08-18] MEDS: Fluticasone Propionate Nasal 50 MCG/SPRAY BOTTLE NS SCH (09:50)
[2016-08-18] MEDS: PERAMPANEL 4 MG PO SCH (09:52)
--- NOTE | 2016-08-18 12:20 | Discharge Summary ---
Date of Encounter: 08/18/16 Time of Encounter: 12:17 - Discharge Diagnosis (1) Anemia Priority: Secondary Status: Chronic Qualifiers: Anemia type: unspecified type Qualified Code(s): D64.9 - Anemia, unspecified (2) Upper GI bleed Priority: Primary Status: Acute (3) Hypokalemia Priority: Secondary Status: Acute (4) Essential hypertension Priority: Secondary Status: Chronic (5) DVT prophylaxis Priority: Secondary Status: Acute - Discharge Medications Prescriptions: Omeprazole [PriLOSEC] 40 mg PO DAILY #30 cap Home Medications: Multivitamin [Multi-Day Vitamins] 1 tab PO DAILY 04/29/16 [History] Albuterol Sulfate [Ventolin Hfa] 2 puff IH Q4H PRN #1 hfa.aer.ad 05/03/16 [Rx] Amlodipine [Norvasc] 5 mg PO DAILY #30 tablet 05/03/16 [Rx] Atorvastatin [Lipitor] 40 mg PO DAILY #30 tablet 05/03/16 [Rx] CloNIDine HCl [Kapvay] 0.1 mg PO BID #60 tab.er.12h 05/03/16 [Rx] Ferrous Sulfate 325 mg PO DAILY #30 tablet 05/03/16 [Rx] Fluticasone Propionate Nasal [Flonase] 100 mcg NS DAILY #1 bottle 05/03/16 [Rx] Fluticasone/Salmeterol [Advair 250-50 Diskus] 1 puff IH BID #1 blst.w.dev [Rx] Gabapentin [Neurontin] 400 mg PO TID PRN #90 capsule 05/03/16 [Rx] Loratadine [Allergy Relief] 10 mg PO DAILY #30 tablet 05/03/16 [Rx] Meloxicam [Mobic] 7.5 mg PO DAILY #30 tablet 05/03/16 [Rx] Metoprolol XL (24 HR) Succ [Toprol Xl] 50 mg PO DAILY #30 tab.er.24h 05/03/16 [ Rx] Montelukast [Singulair] 10 mg PO DAILY #30 tablet 05/03/16 [Rx] Nitroglycerin [Nitrostat] 0.4 mg SL AD PRN #20 tab.subl 05/03/16 [Rx] Perampanel [Fycompa] 4 mg PO DAILY #30 tablet 05/03/16 [Rx] Sucralfate [Carafate] 1 gm PO QIDAC #120 tablet 05/03/16 [Rx] Amitriptyline HCl 200 mg PO HS 08/16/16 [History] Cyanocobalamin (Vitamin B-12) [Vitamin B12] 2,500 mcg PO DAILY 08/16/16 [History ] Vitamin B Complex [B Complex] 1 tab PO DAILY 08/16/16 [History] Omeprazole [PriLOSEC] 40 mg PO DAILY #30 cap 08/18/16 [Rx] Allergies/Adverse Reactions: Allergies acetaminophen [From Percocet] Allergy (Verified 07/29/16 11:05) Anaphylaxis ciprofloxacin [From Cipro] Allergy (Verified 07/29/16 11:05) Anaphylaxis hydrocodone [From Vicodin] Allergy (Verified 07/29/16 11:05) Anaphylaxis ibuprofen Allergy (Verified 07/29/16 11:05) Anaphylaxis meperidine [From Demerol] Allergy (Verified 07/29/16 11:05) Anaphylaxis morphine Allergy (Verified 07/29/16 11:05) Anaphylaxis Oxycodone [From Percocet] Allergy (Verified 07/29/16 11:05) Anaphylaxis Penicillins [PCN] Allergy (Verified 07/29/16 11:05) Anaphylaxis tramadol Allergy (Verified 07/29/16 11:05) Anaphylaxis Date of admission: 08/16/16 19:00 Primary care physician: Nelda Zimmerman MD Consults: surgery: Dr. Scott Discharging clinician: Jia Diego Anticipated date of discharge: 08/18/16 - Patient Status Disposition: Home, Self-Care Condition: Good Functional capacity at discharge: independent ambulation Overall status at discharge: patient is back to baseline - Discharge Instructions Follow Up With: Nelda Zimmerman MD [Primary Care Provider] - Additional Instructions: Please follow up with your primary care physician within five days after your discharge from the hospital. Please ask your primary care physician about a referral to see a baker apprentice. Omeprazole 40mg once daily has been added to your home medications. Please resume all your other home medications as prescribed by your primary care physician. - Diet and Activity Activity: resume usual activities as tolerated Diet: advance to your usual diet Hospital course: Ms. Palacios is a 56 year old female with PMH of gastric bypass, gastric ulcers, hypertension, hyperlipidemia who was admitted for evaluation of hemetemesis concerning for UGIB. Patient was seen by surgery and underwent EGD by Dr. Lorenzo. Patient was found to have stenosis of gastrojejunal anastomosis requiring dilatation and grade B esophagitis, no active bleeding was reported. She was started on clear liquid diet. Patient tolerated PO intake well and has been without any abdominal discomfort since her procedure. H&H has remained stable and no episodes of nausea and vomiting has been reported. Patient reports of not having a baker apprentice and is advised to get a referral from her PCP to see a baker apprentice. Her diet is advanced this morning. She is stable, with no drop in H&H. She will be discharged to home with follow up with PCP. - Time Spent with Patient Total time spent providing and/or coordinating discharge services: Greater than 30 minutes - Constitutional Vitals: Temp Pulse Resp BP Pulse Ox 98.3 F 87 16 149/94 95 08/18/16 10:00 08/18/16 10:00 08/18/16 10:00 08/18/16 10:00 08/18/16 10:00 General appearance: Present: cooperative, A&O X 3, morbidly obese, no acute distress, answers questions appropriately - Head Head exam: Present: atraumatic, normocephalic - Eye Eye exam: Present: normal appearance, conjuntiva pink, sclera anicteric - Respiratory Respiratory exam: Present: CTAB. Absent: accessory muscle use, rales, rhonchi, wheezes - Cardiovascular Cardiovascular exam: Present: RRR, +S1, +S2. Absent: diastolic murmur, gallop, rubs, systolic murmur - GI/Abdominal GI/Abdominal exam: Present: normal bowel sounds, soft, no peritoneal signs. Absent: distended, tenderness - Extremities Exam Extremities exam: Present: warm, radial pulses palpable and symetrical. Absent : calf tenderness, cyanotic - Neurological Exam Neurological exam: Present: alert, oriented X3 - Psychiatric Psychiatric exam: Present: normal affect, normal mood - VTE Documentation of Mechanical Device: Intermittent pneumatic compression device
--- NOTE | 2016-08-18 13:19 | Electrocardiograph Report ---
[address] [place] [address] Test Date: 2016-08-16 Pat Name: Blanca Palacios Department: 105 Room: 3A33 Gender: F Communications Coordinator: : 1960 Requested By: Manuel Sanchez Order Number: [id number] Reading MD: Caty Mahoney Measurements Intervals [place] Rate: 95 P: 44 NV: 188 QRS: 10 QRSD: 100 T: 28 QT: 374 QTc: 426 Interpretive Statements SINUS RHYTHM NONSPECIFIC ST-WAVE ABNORMALITY Electronically Signed On 08-18-2016 13:18:06 EST by Caty Mahoney
== END 2016-08-18 13:12 | disposition home or self-care (01) | DRG 378 ==
LOC: EMEROO 10:13 → 3ANU 10:13
PROVIDERS: ADMIT Family Medicine; ATTEND Internal Medicine
PROC: ENDOORB (2016-08-17 09:00)